=== PATIENT | female | born 1990 | race Caucasian/White ===

== ENCOUNTER 2023-09-16 12:25 | Emergency (ER) | payer OTHER ==
[~2023-09-16] VITALS: Ht 175.3 cm; Wt 72.6 kg
[2023-09-16 13:22] VITALS: BP 96/59; TEMP 98.2; O2SAT 99
== END 2023-09-16 13:23 ==
LOC: ER 12:35
DX: Z02.9 Encounter for administrative examinations, unspecified (principal); F31.9 Bipolar disorder, unspecified; Z88.5 Allergy status to narcotic agent; Z86.69 Personal history of other diseases of the nervous system and sense organs